=== PATIENT | female | born 1990 | race Caucasian/White ===

== ENCOUNTER 2016-10-02 09:57 | Emergency (ER) | payer OTHER ==
[~2016-10-02] VITALS: Ht 172.7 cm; Wt 99.2 kg
[~2016-10-02 09:57] MED LIST: BCP
[2016-10-02 09:58] VITALS: BP 143/82
== END 2016-10-02 11:23 | disposition home or self-care (01) ==
LOC: ED 11:15
DX: Z32.01 Encounter for pregnancy test, result positive (principal)
CPT/HCPCS: 36415; 81001; 84702; 99284

== ENCOUNTER 2017-07-04 19:48 | Emergency (ER) | payer MEDICAID ==
[~2017-07-04] VITALS: Ht 170.2 cm; Wt 113.8 kg
[2017-07-04 19:53] VITALS: BP 129/74
[2017-07-04] MEDS ORDERED: KETOROLAC 30 MG/1 ML IM ONE (20:30)
[2017-07-04] MEDS ORDERED: KETOROLAC 30 MG/1 ML ONE (20:34)
[2017-07-04] MEDS ORDERED: OXYcodone/APAP 5/325MG TABLET ONE (20:53)
[2017-07-04] MEDS ORDERED: OXYcodone/APAP 5/325MG TABLET PO ONE (21:00)
== END 2017-07-04 21:35 | disposition home or self-care (01) ==
LOC: ED 21:22
DX: K02.9 Dental caries, unspecified (principal); R11.0 Nausea; G43.909 Migraine, unspecified, not intractable, without status migrainosus; F17.210 Nicotine dependence, cigarettes, uncomplicated
CPT/HCPCS: 96372; 99283; J1885

== ENCOUNTER 2018-09-28 18:01 | Emergency (ER) | payer MEDICAID ==
[~2018-09-28] VITALS: Ht 170.2 cm; Wt 110.0 kg
[2018-09-28 18:10] VITALS: BP 109/70
[2018-09-28] MEDS ORDERED: METO10TA82 PO (18:18)
[2018-09-28] MEDS ORDERED: PRENATAL (18:18)
[2018-09-28] MEDS ORDERED: LIDOCAINE-MPF 1%, 5ML ONE (18:27)
[2018-09-28] MEDS ORDERED: LIDOCAINE 1%, 10ML INFIL ONE (18:30)
== END 2018-09-28 19:17 | disposition home or self-care (01) ==
LOC: ED 19:11
DX: O9A.212 Injury, poisoning and certain other consequences of external causes complicating pregnancy, second trimester (principal); S61.211A Laceration without foreign body of left index finger without damage to nail, initial encounter; Z3A.22 22 weeks gestation of pregnancy
CPT/HCPCS: 12041; 99284; J3490

== ENCOUNTER 2019-02-17 22:50 | Observation (INO) | payer MEDICAID ==
[~2019-02-17] VITALS: Ht 172.7 cm; Wt 97.5 kg
[~2019-02-17 22:50] MED LIST changes: +METO10TA82 PO; +PRENATAL
[2019-02-17 22:52] VITALS: BP 128/82
[2019-02-17] MEDS ORDERED: SODIUM CHLORIDE FLUSH 10ML SYR IVF ONE (23:30)
[2019-02-17 23:33] LABS: BASOPHILS # (AUTO) 0.16 x10^3/uL (0-0.1); BASOPHILS % (AUTO) 2 % (0-1); EOSINOPHILS # (AUTO) 0.15 x10^3/uL (0-0.4); EOSINOPHILS % (AUTO) 2 % (1-7); LYMPHOCYTES # (AUTO) 1.52 x10^3/uL (1-3.4); LYMPHOCYTES % (AUTO) 15 % (22-44); MD NO; MEAN CORPUSCULAR HEMOGLOBIN 29.3 pg (27.0-34.8); MEAN CORPUSCULAR HGB CONC 32.4 g/dL (32.4-35.8); MEAN CORPUSCULAR VOLUME 90.4 fL (80-100); MEAN PLATELET VOLUME 6.6 fL (7.4-10.4); MONOCYTES # (AUTO) 0.64 x10^3/uL (0.2-0.8); MONOCYTES % (AUTO) 7 % (2-9); NEUTROPHILS # (AUTO) 7.41 x10^3/uL (1.8-6.8); NEUTROPHILS % (AUTO) 75 % (42-75); PLATELET COUNT 776 x10^3/uL (130-400); RED BLOOD COUNT 4.01 x10^6/uL (3.82-5.3); RED CELL DISTRIBUTION WIDTH 13.3 % (9.6-15.2)
--- NOTE | 2019-02-17 23:34 | NUR ---
IV ACCESS INITIATED. LABS DRAWN BY LAB. WOUND DRESSED PER DR. MAIER'S INSTRUCTIONS.
[2019-02-17 23:42] LABS: INTERNATIONAL NORMALIZED RATIO 1.01 (0.93-1.1); PROTHROMBIN TIME 10.6 Seconds (9.6-11.5)
[2019-02-17 23:44] LABS: ALBUMIN 3.3 g/dL (3.4-5.0); ANION GAP 8 mmol/L (5-15); CALCIUM 8.9 mg/dL (8.5-10.1); CHLORIDE 105 mmol/L (98-107); CREATININE 0.96 mg/dL (0.55-1.02)
[2019-02-18] MEDS ORDERED: FENTANYL PF 250 MCG/5ML ONE (00:21)
[2019-02-18] MEDS ORDERED: MIDAZOLAM 1 MG/ML, 2ML ONE (00:21)
[2019-02-18] MEDS ORDERED: DEXAMETHASONE 4 MG/ML, 1ML ONE (00:29)
[2019-02-18] MEDS ORDERED: ONDANSETRON 2MG/ML, 2ML ONE (00:29)
[2019-02-18] MEDS ORDERED: PROPOFOL 10 MG/ML, 20ML ONE (00:29)
[2019-02-18] MEDS ORDERED: SUCCINYLCHOLINE 20 MG/ML, 10ML ONE (00:29)
[2019-02-18] MEDS ORDERED: ROCURONIUM 10 MG/ML,10ML ONE (00:29)
[2019-02-18] MEDS ORDERED: CEFAZOLIN 1,000 MG ONE (00:29)
[2019-02-18] MEDS ORDERED: BUPIVACAINE/PF-EPI 0.25% 1:200K ONE (00:40)
[2019-02-18] MEDS ORDERED: BUPIVACAINE/PF-EPI 0.25% 1:200K INFIL ONE (00:58)
[2019-02-18] MEDS ORDERED: LABETALOL 5MG/ML, 20ML IV PRN (01:00)
[2019-02-18] MEDS ORDERED: ONDANSETRON 2MG/ML, 2ML IVPush PRN (01:00)
[2019-02-18] MEDS ORDERED: PROMETHAZINE 25 MG/ML, 1ML IV PRN (01:00)
[2019-02-18] MEDS ORDERED: hydrALAzine 20 MG/ML, 1ML IV PRN (01:00)
[2019-02-18] MEDS ORDERED: ALBUTEROL SULFATE 2.5 MG/3 ML NPPB PRN (01:00)
[2019-02-18] MEDS ORDERED: MEPERIDINE/PF 25MG/0.5ML IVPush PRN (01:00)
[2019-02-18] MEDS ORDERED: METOCLOPRAMIDE 5 MG/ML, 2ML IV PRN (01:00)
[2019-02-18] MEDS ORDERED: KETOROLAC 30 MG/1 ML IV PRN (01:00)
[2019-02-18] MEDS ORDERED: FENTANYL PF 100 MCG/2ML IV PRN (01:00)
[2019-02-18] MEDS ORDERED: HYDROmorphone 1 MG/ML, 1ML INJ IV PRN (01:00)
[2019-02-18] MEDS ORDERED: OXYcodone 5 MG/5 ML ORAL.SOL UDC PO PRN (01:00)
[2019-02-18] MEDS ORDERED: ACETAMINOPHEN 650 MG/20.3 ML UDC ONE (01:34)
[2019-02-18] MEDS ORDERED: OXYcodone 5 MG/5 ML ORAL.SOL UDC ONE (01:39)
[2019-02-18] MEDS ORDERED: ACETAMINOPHEN 650 MG/20.3 ML UDC PO PRN (02:00)
[2019-02-18] MEDS ORDERED: HYDR-3240 PO (02:44)
== END 2019-02-18 03:30 | disposition home or self-care (01) ==
LOC: ED 23:35 → INTOOBSV 23:59 → EDIP 23:59 → 4NE 02-18 01:57
PROVIDERS: ADMIT Obstetrics & Gynecology; ATTEND Obstetrics & Gynecology
DX: L76.32 Postprocedural hematoma of skin and subcutaneous tissue following other procedure (principal); O90.2 Hematoma of obstetric wound; Y83.8 Other surgical procedures as the cause of abnormal reaction of the patient, or of later complication, without mention of misadventure at the time of the procedure; Z88.0 Allergy status to penicillin; Z88.5 Allergy status to narcotic agent; F17.200 Nicotine dependence, unspecified, uncomplicated
CPT/HCPCS: 36415; 49002; 80048; 82040; 85025; 85610; 86850; 86900; 99284; G0378; J0330; J0690; J1100; J2250; J2405; J2704; J3010